=== PATIENT | female | born 1945 | race Caucasian/White ===

== ENCOUNTER 2022-05-19 13:11 | Emergency (ER) | payer OTHER ==
[~2022-05-19] VITALS: Ht 157.5 cm; Wt 0.5 kg
[2022-05-19] MEDS ORDERED: EPINEPHrine HCL 1 MG/10 ML SYRG IV ONE (13:12)
[2022-05-19] MEDS ORDERED: CALCIUM CHLOR(10%) 100MG/ML 10ML SYRINGE IV ONE ×2 (13:12→16:05)
[2022-05-19] MEDS ORDERED: SODIUM BICARBONATE 8.4% INJ 50ML SYRINGE IV ONE (13:12)
[2022-05-19] MEDS ORDERED: NOREPINEPHRINE 8 MG/250ML KIT 250 ML IV SCH ×2 (14:18→17:00)
[2022-05-19] MEDS ORDERED: SODIUM BICARBONATE 8.4 % INJ 50ML VIAL IV ONE ×2 (14:33→14:45)
[2022-05-19] MEDS ORDERED: EPINEPHrine HCL 250 ML IV ONE (14:45)
[2022-05-19] MEDS ORDERED: EPINEPHrine HCL 500 ML IV ONE (14:45)
[2022-05-19] MEDS ORDERED: OCTREOTIDE ACETATE 100 MCG in SODIUM CHL 0.9% 50 ML IV ONE (14:45)
[2022-05-19] MEDS ORDERED: PANTOPRAZOLE 80 MG in SODIUM CHL 0.9% 100 ML IV ONE (14:45)
[2022-05-19] MEDS ORDERED: cefTRIAXone 1GM/50ML D5W 50 ML IV ONE (14:45)
[2022-05-19] MEDS ORDERED: AZITHROMYCIN 500MG/ 250ML 250 ML IV ONE (14:45)
[2022-05-19] MEDS ORDERED: NOREPINEPHRINE 8 MG/250ML KIT 250 ML IV ONE (15:04)
[2022-05-19 15:07] LABS: Albumin 1.2 g/dL (3.4-5.0); Anion Gap 12 (5-15); BUN/Creatinine Ratio 21.4; Blood Urea Nitrogen 15 mg/dL (7-18); Carbon Dioxide 19 mmol/L (21-32); Chloride 129 mmol/L (98-107); GFR African American 105 mL/min; GFR Non-African American 87 mL/min; Glucose 220 mg/dL (74-106); Sodium 160 mmol/L (136-145)
[2022-05-19] MEDS ORDERED: EPINEPHrine HCL 1 MG/10 ML SYRG ONE ×2 (15:12→15:38)
[2022-05-19] MEDS ORDERED: SODIUM BICARBONATE 8.4% INJ 50ML SYRINGE ONE ×2 (15:12→15:38)
[2022-05-19 15:16] LABS: Alanine Aminotransferase 40 U/L (13-56); Alkaline Phosphatase 39 U/L (45-117); Aspartate Aminotransferase 54 U/L (15-37); Bilirubin, Total 0.2 mg/dL (0.2-1.0); Total Protein 2.6 g/dL (6.4-8.2)
[2022-05-19] MEDS ORDERED: SODIUM BICARBONATE 50ML VIAL 150 ML in SOD CHL 0.45% 1,000 ML IV STA (15:22)
[2022-05-19] MEDS ORDERED: DOPamine 1600MCG/ML D5W 250 ML IV ONE (15:30)
[2022-05-19 15:42] LABS: Potassium 2.3 mmol/L (3.5-5.1)
[2022-05-19] MEDS ORDERED: POTASSIUM CHL 20MEQ/100ML 100 ML IV SCH (15:45)
[2022-05-19 15:48] LABS: Calcium < 5.0 mg/dL (8.5-10.1)
[2022-05-19 15:59] VITALS: BP 96/35
[2022-05-19] MEDS ORDERED: EPINEPHrine HCL 250 ML IV SCH (16:45)
[2022-05-19] MEDS ORDERED: EPINEPHrine HCL INJECTION 8 MG in D5W 5% 242 ML IV SCH (17:00)
== END 2022-05-19 16:20 ==
LOC: ER 13:11
DX: I46.9 Cardiac arrest, cause unspecified (principal); A41.9 Sepsis, unspecified organism; K92.2 Gastrointestinal hemorrhage, unspecified; R14.0 Abdominal distension (gaseous)
CPT/HCPCS: 31500; 36415; 36556; 36600; 70450; 71045; 80053; 82805; 84484; 86920; 87070; 87077; 87186; 87205; 92950; 93005; 93306; 99291; 99292; C9113; J0171; J7060; P9016; 94002